=== PATIENT | male | born 1975 | race African-American/Black ===

== ENCOUNTER 2020-07-12 10:49 | Emergency (ER) | payer SELFPAY ==
[2020-07-12 11:12] LABS: #Basophils 0.1 thou/uL (0.0-0.2); #Eosinphils 0.1 thou/uL (0.0-0.7); #Lymphocytes 2.8 thou/uL (1.20-3.40); #Monocytes 0.6 thou/uL (0.11-0.59); #Neutrophils 3.4 thou/uL (1.40-6.50); %Basophils 0.8 % (0.0-1.0); %Lymphocytes 40.5 % (21.0-51.0); %Neutrophils 49.7 % (42.0-75.0); Hemoglobin 10.3 g/dL (14.0-18.0); Mean Corpuscular HGB CONC 32.7 g/dL (32.0-36.0); Mean Corpuscular Hemoglobin 26.1 pg (27.0-31.0); Mean Platelet Volume 8.5 fL (7.4-10.4); Platelet Count 326 thou/uL (130-400); RBC Distribution Width 12.9 % (11.5-14.5); Red Blood Cell (RBC) Count 3.94 mill/uL (4.70-6.10); White Blood Cell (WBC) Count 6.9 thou/uL (4.8-10.8)
--- NOTE | 2020-07-12 11:41 | RAD ---
Chest one view HISTORY: Syncope. COMPARISON: 11/11/2019. FINDINGS: Cardiac silhouette and pulmonary vasculature are unremarkable. Mediastinum is midline. No confluent airspace consolidation or evidence of pneumothorax. IMPRESSION : No abnormalities are demonstrated.
[2020-07-12 11:43] LABS: ALT (SGPT) 13 U/L (8-55); AST (SGOT) 14 U/L (5-34); Albumin 3.4 g/dL (3.5-5.0); Alkaline Phosphatase 98 U/L (40-110); Anion Gap 13 mmol/L (10-20); BUN (Urea Nitrogen) 23 mg/dL (8.9-20.6); Bilirubin, Total 0.2 mg/dL (0.2-1.2); Calc. Creatinine Clearance 0 mL/min (70-130); Calcium 8.4 mg/dL (7.8-10.44); Carbon Dioxide 26 mmol/L (22-29); Chloride 103 mmol/L (98-107); Globulin 2.7 g/dL (2.4-3.5); Glucose 160 mg/dL (70-105); Potassium 3.5 mmol/L (3.5-5.1); Protein, Total 6.1 g/dL (6.0-8.3); Sodium 138 mmol/L (136-145)
--- NOTE | 2020-07-12 11:52 | CT ---
CT HEAD WITHOUT IV CONTRAST COMPARISON: 03/03/2014 HISTORY: Patient stumbling. Syncopal episode. TECHNIQUE: Axial CT imaging at 5 mm intervals from vertex through skull base without contrast FINDINGS: There is no evidence of an acute infarction, hemorrhage, mass effect, or midline shift. The ventricul ar system is normal in size, shape, and position. Skull base has a normal CT appearance. Visualized paranasal sinuses are clear. Osseous structures appear intact. No interval change compared to prior exam. IMPRESSION: 1. No acute intracranial abnormality demonstrated.
[2020-07-12 12:24] LABS: Bacteria/HPF 4+ HPF (None Seen); Bilirubin Negative (Negative); Blood, Urine Negative (Negative); Clarity Clear (Clear); Glucose, Urine (Dipstick) Greater than 1000 mg/dL (Negative); Ketone, Urine Negative (Negative); Leukocyte 250 Leu/uL (Negative); Nitrite Negative (Negative); Protein, Urine (Dipstick) Negative (Neg-Trace); RBC/HPF 0-3 HPF (0-3); Specific Gravity, Urine 1.016 (1.002-1.036); Squamous Epithelial None Seen HPF (0-3); Urobilinogen Normal mg/dL (Less than 2); WBC/HPF 21-50 HPF (0-3)
[2020-07-12 12:34] LABS: Sperm/HPF Rare HPF (None Seen)
--- NOTE | 2020-07-29 20:36 | EKG ---
Test Reason : Blood Pressure : / mmHG Vent. Rate : 080 BPM Atrial Rate : 080 BPM P-R Int : 156 ms QRS Dur : 092 ms QT Int : 362 ms P-R-T Axes : 073 059 066 degrees QTc Int : 417 ms Normal sinus rhythm Nonspecific T wave abnormality Abnormal ECG Confirmed by LISET DOMINGUEZ, VIRI ([id number]), editorial assistant FREDY TINEO ([id number]) on 07/29/2020 8:36:39 PM Referred By: Confirmed By:VIRI HUTCHINS MD
== END 2020-07-12 13:25 | disposition home or self-care (01) ==
LOC: ERS 10:49
DX: R55 Syncope and collapse (principal); N39.0 Urinary tract infection, site not specified; E11.9 Type 2 diabetes mellitus without complications; I10 Essential (primary) hypertension; I48.91 Unspecified atrial fibrillation; F17.210 Nicotine dependence, cigarettes, uncomplicated; Z79.4 Long term (current) use of insulin; Z79.82 Long term (current) use of aspirin; Z79.899 Other long term (current) drug therapy
CPT/HCPCS: 36416; 70450; 71045; 80053; 81003; 81015; 84484; 85025; 93005

== ENCOUNTER 2020-09-16 15:00 | Inpatient (IN) | payer MEDICAID ==
[2020-09-16] MEDS ORDERED: Senokot S 8.6-50 MG TAB PO PRN (16:43)
[2020-09-16] MEDS ORDERED: Sodium Chloride 0.9% 1,000 ML IV PRN ×4 (16:43)
[2020-09-16] MEDS ORDERED: Calcium Carbonate 500 MG ChewTAB PO PRN (16:43)
[2020-09-16] MEDS ORDERED: Electrolyte Replacement Protocol IVPB SCH (16:43)
[2020-09-16] MEDS ORDERED: Ondansetron PF 4 MG/2 ML Vial IVP PRN (16:43)
[2020-09-16] MEDS ORDERED: Loperamide HCl 2 MG CAP PO PRN (16:43)
[2020-09-16] MEDS ORDERED: Ondansetron ODT 4 MG TAB PO PRN (16:43)
[2020-09-16] MEDS ORDERED: NS 0.9% w/ 20 MEQ KCL 1,000 ML IV PRN ×2 (16:43)
[2020-09-16] MEDS ORDERED: Dextrose 5 %-0.45 % NaCl 1,000 ML IV PRN (16:43)
[2020-09-16] MEDS ORDERED: Zolpidem Tartrate 5 MG TAB PO PRN (16:43)
[2020-09-16] MEDS ORDERED: HYDROcodone/Acetaminophen 5/325 mg Tablet PO PRN (16:43)
[2020-09-16] MEDS ORDERED: Acetaminophen 325 MG TAB PO PRN (16:43)
[2020-09-16] MEDS ORDERED: Bisacodyl 10 MG SUPP PR PRN (16:43)
[2020-09-16] MEDS ORDERED: Guaifenesin DM 100-10/5 ML UDCUP PO PRN (16:43)
[2020-09-16] MEDS ORDERED: D5 1/2 NS w/20 mEq KCL 1,000 ML IV PRN (16:43)
[2020-09-16] MEDS ORDERED: HUMULIN R 100 UNITS in Sodium Chloride 0.9% 100 ML IVPB SCH (16:45)
[2020-09-16] MEDS ORDERED: Atenolol 25 MG TAB PO SCH (17:00)
[2020-09-16 17:27] LABS: Anion Gap 17 mmol/L (10-20); BUN (Urea Nitrogen) 27 mg/dL (8.9-20.6); Calc. Creatinine Clearance 0 mL/min (70-130); Calcium 8.4 mg/dL (7.8-10.44); Carbon Dioxide 22 mmol/L (22-29); Chloride 111 mmol/L (98-107); Glucose 183 mg/dL (70-105); Potassium 3.9 mmol/L (3.5-5.1); Sodium 146 mmol/L (136-145)
[2020-09-16] MEDS: Atenolol 25 MG TAB PO SCH (17:43)
[2020-09-16] MEDS ORDERED: Dextrose 5% in Water 1,000 ML IV PRN (20:15)
[2020-09-16] MEDS ORDERED: Dextrose 50% Abboject 50 ML SYRINGE SLOW IVP PRN (20:15)
[2020-09-16] MEDS: Heparin 5,000 UNITS/ML VIAL SC SCH (21:28)
[2020-09-16 22:15] LABS: Anion Gap 12 mmol/L (10-20); BUN (Urea Nitrogen) 24 mg/dL (8.9-20.6); Calc. Creatinine Clearance 0 mL/min (70-130); Calcium 7.9 mg/dL (7.8-10.44); Carbon Dioxide 25 mmol/L (22-29); Chloride 109 mmol/L (98-107); Glucose 152 mg/dL (70-105); Potassium 4.1 mmol/L (3.5-5.1); Sodium 142 mmol/L (136-145)
[2020-09-17] MEDS ORDERED: Lantus 1000 UNITS/10 ML VIAL SC SCH ×2 (00:30→21:00)
[2020-09-17] MEDS: Sodium Chloride 0.9% 1,000 ML IV SCH ×3 (00:56→19:31)
[2020-09-17 02:00] LABS: Anion Gap 14 mmol/L (10-20); BUN (Urea Nitrogen) 21 mg/dL (8.9-20.6); Calc. Creatinine Clearance 0 mL/min (70-130); Calcium 7.5 mg/dL (7.8-10.44); Carbon Dioxide 20 mmol/L (22-29); Chloride 109 mmol/L (98-107); Glucose 154 mg/dL (70-105); Potassium 3.9 mmol/L (3.5-5.1); Sodium 139 mmol/L (136-145)
[2020-09-17] MEDS: HumaLOG 300 UNITS/3 ML VIAL SC PRN ×2 (02:31→10:59)
[2020-09-17 03:54] LABS: #Basophils 0.1 thou/uL (0.0-0.2); #Eosinphils 0.1 thou/uL (0.0-0.7); #Lymphocytes 3.7 thou/uL (1.20-3.40); #Monocytes 0.5 thou/uL (0.11-0.59); #Neutrophils 4.5 thou/uL (1.40-6.50); %Basophils 0.8 % (0.0-1.0); %Eosinophils 0.9 % (0.0-10.0); %Lymphocytes 42.1 % (21.0-51.0); %Monocytes 5.4 % (0.0-10.0); %Neutrophils 50.8 % (42.0-75.0); Hemoglobin 9.8 g/dL (14.0-18.0); Mean Corpuscular HGB CONC 33.2 g/dL (32.0-36.0); Mean Corpuscular Hemoglobin 26.2 pg (27.0-31.0); Mean Corpuscular Volume 78.9 fL (78.0-98.0); Mean Platelet Volume 9.4 fL (7.4-10.4); Platelet Count 276 thou/uL (130-400); RBC Distribution Width 12.4 % (11.5-14.5); Red Blood Cell (RBC) Count 3.75 mill/uL (4.70-6.10); White Blood Cell (WBC) Count 8.8 thou/uL (4.8-10.8)
[2020-09-17 03:58] LABS: Hemoglobin A1c Greater than 14.0 % (4.0-6.0)
[2020-09-17 04:18] LABS: ALT (SGPT) 34 U/L (8-55); AST (SGOT) 37 U/L (5-34); Albumin 3.1 g/dL (3.5-5.0); Alkaline Phosphatase 102 U/L (40-110); Anion Gap 12 mmol/L (10-20); BUN (Urea Nitrogen) 20 mg/dL (8.9-20.6); Bilirubin, Total 0.4 mg/dL (0.2-1.2); Calc. Creatinine Clearance 0 mL/min (70-130); Calcium 7.9 mg/dL (7.8-10.44); Carbon Dioxide 22 mmol/L (22-29); Chloride 109 mmol/L (98-107); Globulin 2.3 g/dL (2.4-3.5); Glucose 155 mg/dL (70-105); Phosphorus 2.5 mg/dL (2.3-4.7); Protein, Total 5.4 g/dL (6.0-8.3); Sodium 139 mmol/L (136-145)
[2020-09-17] MEDS ORDERED: Magnesium 2 GM/50 ML 2 GM in Premix Bag 1 BAG IVPB SCH (06:45)
[2020-09-17] MEDS: Heparin 5,000 UNITS/ML VIAL SC SCH ×2 (08:14→21:18)
[2020-09-17] MEDS: Famotidine 20 MG TAB PO SCH (08:15)
[2020-09-17] MEDS: Atenolol 25 MG TAB PO SCH (08:15)
[2020-09-17] MEDS: Famotidine/PF 20 mg/2ml Vial SLOW IVP SCH (08:24)
[2020-09-17] MEDS ORDERED: FLU VACC QS2020-21(6MOS UP)/PF 60 MCG/0.5 ML SYRINGE IM ONE (09:00)
[2020-09-17] MEDS ORDERED: Insulin Glargine 30 UNITS in Pre-Filled Syringe 1 EACH SC SCH (09:00)
[2020-09-17] MEDS: Lantus 1000 UNITS/10 ML VIAL SC SCH ×2 (10:13→21:21)
[2020-09-18 05:04] LABS: Anion Gap 8 mmol/L (10-20); BUN (Urea Nitrogen) 12 mg/dL (8.9-20.6); Calc. Creatinine Clearance 0 mL/min (70-130); Calcium 7.6 mg/dL (7.8-10.44); Carbon Dioxide 24 mmol/L (22-29); Chloride 110 mmol/L (98-107); Glucose 165 mg/dL (70-105); Potassium 3.8 mmol/L (3.5-5.1); Sodium 138 mmol/L (136-145)
[2020-09-18] MEDS: Sodium Chloride 0.9% 1,000 ML IV SCH (05:41)
[2020-09-18] MEDS: Famotidine/PF 20 mg/2ml Vial SLOW IVP SCH (07:36)
[2020-09-18] MEDS ORDERED: Magnesium 2 GM/50 ML 2 GM in Premix Bag 1 BAG IVPB SCH (07:45)
[2020-09-18] MEDS: Famotidine 20 MG TAB PO SCH (09:15)
[2020-09-18] MEDS: Heparin 5,000 UNITS/ML VIAL SC SCH (09:15)
[2020-09-18] MEDS: Atenolol 25 MG TAB PO SCH (09:23)
[2020-09-18] MEDS: Lantus 1000 UNITS/10 ML VIAL SC SCH (10:12)
[2020-09-18] MEDS ORDERED: Insulin Glargine 15 UNITS in Pre-Filled Syringe 1 EACH SC SCH (12:00)
[2020-09-18 12:07] VITALS: BP 122/80; TEMP 97.3
[2020-09-18] MEDS: HumaLOG 300 UNITS/3 ML VIAL SC PRN (12:08)
[2020-09-18] MEDS ORDERED: Lantus 1000 UNITS/10 ML VIAL SC SCH (12:15)
== END 2020-09-18 12:56 | disposition home or self-care (01) | DRG 638 ==
LOC: CCU 15:45 → 2NO 09-17 13:29
PROVIDERS: ADMIT Internal Medicine; ATTEND Internal Medicine
DX: E11.10 Type 2 diabetes mellitus with ketoacidosis without coma (principal); N17.9 Acute kidney failure, unspecified; I10 Essential (primary) hypertension; F32.9 Major depressive disorder, single episode, unspecified; E86.0 Dehydration; I48.0 Paroxysmal atrial fibrillation; F16.10 Hallucinogen abuse, uncomplicated; E11.42 Type 2 diabetes mellitus with diabetic polyneuropathy; F17.210 Nicotine dependence, cigarettes, uncomplicated; Z79.4 Long term (current) use of insulin
CPT/HCPCS: 36415; 36416; 80048; 82010; 83036; 83735; 84100; 84443; 85025; J1644; J1815; J3475; J3480

== ENCOUNTER 2021-03-31 18:12 | Inpatient (IN) | payer OTHER ==
[2021-03-31 19:04] LABS: #Eosinphils 0.1 thou/uL (0.0-0.7); #Lymphocytes 2.4 thou/uL (1.20-3.40); #Monocytes 0.5 thou/uL (0.11-0.59); #Neutrophils 3.8 thou/uL (1.40-6.50); %Basophils 0.7 % (0.0-1.0); %Lymphocytes 35.9 % (21.0-51.0); %Monocytes 6.6 % (0.0-10.0); %Neutrophils 55.9 % (42.0-75.0); Hemoglobin 10.4 g/dL (14.0-18.0); Mean Corpuscular HGB CONC 33.7 g/dL (32.0-36.0); Mean Corpuscular Hemoglobin 27.1 pg (27.0-31.0); Mean Corpuscular Volume 80.6 fL (78.0-98.0); Mean Platelet Volume 9.2 fL (7.4-10.4); Platelet Count 258 thou/uL (130-400); RBC Distribution Width 12.4 % (11.5-14.5); Red Blood Cell (RBC) Count 3.82 mill/uL (4.70-6.10); White Blood Cell (WBC) Count 6.8 thou/uL (4.8-10.8)
[2021-03-31 19:13] LABS: Bacteria/HPF None Seen HPF (None Seen); Bilirubin Negative (Negative); Blood, Urine Negative (Negative); Clarity Clear (Clear); Glucose, Urine (Dipstick) Greater than 1000 mg/dL (Negative); Ketone, Urine Negative (Negative); Leukocyte Negative Leu/uL (Negative); Nitrite Negative (Negative); Protein, Urine (Dipstick) 30 mg/dL (Neg-Trace); RBC/HPF 0-3 HPF (0-3); Specific Gravity, Urine 1.022 (1.002-1.036); Squamous Epithelial 0-3 HPF (0-3); Urobilinogen Normal mg/dL (Less than 2); WBC/HPF 0-3 HPF (0-3); pH, Urine 5.5 (5.0-9.0)
[2021-03-31 19:21] LABS: Amphetamine Not Detected (NotDetected); Barbiturates Screen Not Detected (NotDetected); Benzodiazepine Screen Not Detected (NotDetected); Cocaine Metabolite Screen Not Detected (NotDetected); Methadone Not Detected (NotDetected); Methamphetamine Not Detected (NotDetected); Opiate Screen Not Detected (NotDetected); Oxycodone Screen Not Detected (NotDetected); Phencyclidine (PCP) Detected (NotDetected); THC/Cannabinoid Screen Not Detected (NotDetected); Tricyclic Screen Not Detected (NotDetected)
[2021-03-31 19:26] LABS: ALT (SGPT) 14 U/L (8-55); AST (SGOT) 13 U/L (5-34); Acetaminophen Less than 6.0 mcg/mL (10.0-30.0); Albumin 3.8 g/dL (3.5-5.0); Alcohol Less than 10 mg/dL (Less than 10); Alkaline Phosphatase 97 U/L (40-110); Anion Gap 14 mmol/L (10-20); BUN (Urea Nitrogen) 23 mg/dL (8.9-20.6); Bilirubin, Total 0.2 mg/dL (0.2-1.2); CK (CPK) 99 U/L (30-200); Calc. Creatinine Clearance 0 mL/min (70-130); Calcium 9.5 mg/dL (7.8-10.44); Carbon Dioxide 27 mmol/L (22-29); Chloride 103 mmol/L (98-107); Globulin 2.6 g/dL (2.4-3.5); Glucose 132 mg/dL (70-105); Potassium 3.8 mmol/L (3.5-5.1); Protein, Total 6.4 g/dL (6.0-8.3); Salicylate Less than 8.0 mg/dL (15.0-30.0); Sodium 140 mmol/L (136-145)
[2021-03-31] MEDS ORDERED: Cefepime 2 GM VIAL ONE (21:05)
[2021-04-01] MEDS ORDERED: Acetaminophen 650 MG Suppository PR PRN (00:28)
[2021-04-01] MEDS ORDERED: Ondansetron PF 4 MG/2 ML Vial IVP PRN (00:28)
[2021-04-01] MEDS ORDERED: Ondansetron ODT 4 MG TAB PO PRN (00:28)
[2021-04-01] MEDS ORDERED: Acetaminophen 325 MG TAB PO PRN (00:28)
[2021-04-01] MEDS ORDERED: Dextrose 50% Abboject 50 ML SYRINGE SLOW IVP PRN (00:30)
[2021-04-01] MEDS ORDERED: Dextrose 5% in Water 1,000 ML IV PRN (00:30)
[2021-04-01] MEDS ORDERED: HumaLOG 300 UNITS/3 ML VIAL SC PRN (00:30)
[2021-04-01 06:05] LABS: #Eosinphils 0.1 thou/uL (0.0-0.7); #Lymphocytes 2.1 thou/uL (1.20-3.40); #Monocytes 0.5 thou/uL (0.11-0.59); #Neutrophils 2.9 thou/uL (1.40-6.50); %Basophils 0.4 % (0.0-1.0); %Lymphocytes 37.8 % (21.0-51.0); %Monocytes 8.6 % (0.0-10.0); %Neutrophils 52.2 % (42.0-75.0); Hemoglobin 9.7 g/dL (14.0-18.0); Mean Corpuscular HGB CONC 32.4 g/dL (32.0-36.0); Mean Corpuscular Hemoglobin 26.2 pg (27.0-31.0); Mean Corpuscular Volume 80.7 fL (78.0-98.0); Mean Platelet Volume 9.4 fL (7.4-10.4); Platelet Count 272 thou/uL (130-400); RBC Distribution Width 12.2 % (11.5-14.5); Red Blood Cell (RBC) Count 3.69 mill/uL (4.70-6.10); White Blood Cell (WBC) Count 5.6 thou/uL (4.8-10.8)
[2021-04-01] MEDS: HumaLOG 300 UNITS/3 ML VIAL SC PRN (06:19)
[2021-04-01 06:22] LABS: Anion Gap 10 mmol/L (10-20); BUN (Urea Nitrogen) 18 mg/dL (8.9-20.6); Calc. Creatinine Clearance 60 mL/min (70-130); Calcium 8.5 mg/dL (7.8-10.44); Carbon Dioxide 27 mmol/L (22-29); Chloride 102 mmol/L (98-107); Glucose 471 mg/dL (70-105); Potassium 4.2 mmol/L (3.5-5.1); Sodium 135 mmol/L (136-145)
[2021-04-01] MEDS ORDERED: hydrALAZINE 20 MG/ML VIAL SLOW IVP PRN (06:51)
[2021-04-01 07:15] LABS: Hemoglobin A1c 13.1 % (4.0-6.0)
[2021-04-01] MEDS ORDERED: Insulin Regular 300 UNITS/3 ML VIAL ONE (08:43)
[2021-04-01] MEDS ORDERED: Non-Formulary Item 1 EACH (Insulin Nph Hum/Reg Insulin Hm [Novolin 70-30 Flexpen] 100 UNI SQ SCH (09:00)
[2021-04-01] MEDS ORDERED: Non-Formulary Item 1 EACH (Pregabalin [Lyrica] 150 MG Capsule) PO SCH (09:00)
[2021-04-01] MEDS: Pregabalin 75 MG CAP PO SCH ×2 (09:00→20:20)
[2021-04-01] MEDS ORDERED: FLU VACC QS2021-22(6MOS UP)/PF 60 MCG/0.5 ML SYRINGE IM ONE (09:00)
[2021-04-01] MEDS: HumuLIN 70/30 (300 UNITS/3 ML VIAL) SC SCH ×2 (09:10→20:17)
[2021-04-01] MEDS ORDERED: Amlodipine 5 MG TAB PO SCH (21:00)
[2021-04-01] MEDS: Docusate 100 MG CAP PO SCH (21:07)
[2021-04-02 05:03] VITALS: BMI 21.2
[2021-04-02] MEDS: Pregabalin 75 MG CAP PO SCH (08:55)
[2021-04-02] MEDS: HumuLIN 70/30 (300 UNITS/3 ML VIAL) SC SCH (08:57)
[2021-04-02] MEDS: Docusate 100 MG CAP PO SCH (08:58)
[2021-04-02] MEDS ORDERED: Insulin Regular 300 UNITS/3 ML VIAL ONE (11:29)
[2021-04-02] MEDS: HumaLOG 300 UNITS/3 ML VIAL SC PRN (11:31)
[2021-04-02 12:41] VITALS: BP 175/85; TEMP 97.9
== END 2021-04-02 15:14 | disposition home or self-care (01) | DRG 312 ==
LOC: ERS 18:12 → 2SW 21:51 → OBSVTOIN 04-02 14:28
PROVIDERS: ADMIT Student in an Organized Health Care Education/Training Program; ATTEND Family Medicine
DX: I95.2 Hypotension due to drugs (principal); N17.9 Acute kidney failure, unspecified; E87.2 Acidosis; E86.9 Volume depletion, unspecified; Z20.822 Contact with and (suspected) exposure to COVID-19; I10 Essential (primary) hypertension; E11.65 Type 2 diabetes mellitus with hyperglycemia; E86.0 Dehydration; E11.40 Type 2 diabetes mellitus with diabetic neuropathy, unspecified; D64.9 Anemia, unspecified; F12.10 Cannabis abuse, uncomplicated; T44.7X6A Underdosing of beta-adrenoreceptor antagonists, initial encounter; T46.5X6A Underdosing of other antihypertensive drugs, initial encounter; E11.649 Type 2 diabetes mellitus with hypoglycemia without coma; Z91.14 Patient's other noncompliance with medication regimen; Z91.128 Patient's intentional underdosing of medication regimen for other reason; Z79.899 Other long term (current) drug therapy; Z79.4 Long term (current) use of insulin
CPT/HCPCS: 36415; 36416; 71045; 80048; 80053; 80306; 80307; 81003; 81015; 82550; 83036; 83605; 84484; 85025; 86850; 86900; 86901; 87040; 87086; 90471; 90686; 90732; 93005; 96365; 96366; G0008; G0009; G0378; J0692; J1815

== ENCOUNTER 2021-08-22 15:11 | Emergency (ER) | payer OTHER | END 2021-08-22 16:26 | disposition home or self-care (01) | LOC: ERS 15:11 | DX: R55 Syncope and collapse (principal); Z79.899 Other long term (current) drug therapy; Z79.4 Long term (current) use of insulin; E11.9 Type 2 diabetes mellitus without complications; I10 Essential (primary) hypertension; I48.91 Unspecified atrial fibrillation; F17.210 Nicotine dependence, cigarettes, uncomplicated | CPT/HCPCS: 99284 ==

== ENCOUNTER 2021-10-23 11:34 | Observation (INO) | payer OTHER ==
[2021-10-23 12:07] LABS: Actual Bicarbonate (HCO3v) 28 mEq/L (22-28); Analyzer IN Cardio ER; Calcium, Ionized (venous) 1.15 mmol/L (1.16-1.32); Chloride (VBG) 104 mmol/L (98-106); Potassium (VBG) 3.46 mmol/L (3.70-5.30); Sodium 141.4 mmol/L (133-146); pH (venous) 7.34 (7.32-7.43)
[2021-10-23 12:36] LABS: #Lymphocytes 1.7 thou/uL (1.20-3.40); #Monocytes 0.6 thou/uL (0.11-0.59); #Neutrophils 4.8 thou/uL (1.40-6.50); %Basophils 0.1 % (0.0-1.0); %Eosinophils 0.6 % (0.0-10.0); %Lymphocytes 23.8 % (21.0-51.0); %Neutrophils 67.5 % (42.0-75.0); Mean Corpuscular HGB CONC 31.9 g/dL (32.0-36.0); Mean Corpuscular Hemoglobin 25.7 pg (27.0-31.0); Mean Corpuscular Volume 80.8 fL (78.0-98.0); Mean Platelet Volume 8.5 fL (7.4-10.4); Platelet Count 325 thou/uL (130-400); RBC Distribution Width 13.1 % (11.5-14.5); Red Blood Cell (RBC) Count 4.27 mill/uL (4.70-6.10); White Blood Cell (WBC) Count 7.1 thou/uL (4.8-10.8)
[2021-10-23 12:51] LABS: ALT (SGPT) 9 U/L (8-55); AST (SGOT) 10 U/L (5-34); Albumin 3.8 g/dL (3.5-5.0); Alkaline Phosphatase 132 U/L (40-110); Anion Gap 13 mmol/L (10-20); BUN (Urea Nitrogen) 17 mg/dL (8.9-20.6); Bilirubin, Total 0.6 mg/dL (0.2-1.2); Calc. Creatinine Clearance 0 mL/min (70-130); Calcium 9.1 mg/dL (7.8-10.44); Carbon Dioxide 26 mmol/L (22-29); Chloride 105 mmol/L (98-107); Globulin 3.1 g/dL (2.4-3.5); Glucose 246 mg/dL (70-105); Potassium 3.4 mmol/L (3.5-5.1); Protein, Total 6.9 g/dL (6.0-8.3); Sodium 141 mmol/L (136-145)
[2021-10-23] MEDS ORDERED: Aspirin Chewable 81 MG TAB ONE (12:52)
[2021-10-23 16:02] LABS: Amphetamine Not Detected (NotDetected); Barbiturates Screen Not Detected (NotDetected); Benzodiazepine Screen Not Detected (NotDetected); Cocaine Metabolite Screen Not Detected (NotDetected); Methadone Not Detected (NotDetected); Methamphetamine Not Detected (NotDetected); Opiate Screen Not Detected (NotDetected); Oxycodone Screen Not Detected (NotDetected); Phencyclidine (PCP) Detected (NotDetected); THC/Cannabinoid Screen Not Detected (NotDetected); Tricyclic Screen Not Detected (NotDetected)
[2021-10-23] MEDS ORDERED: Ondansetron PF 4 MG/2 ML Vial IVP PRN (16:06)
[2021-10-23] MEDS ORDERED: Dextrose 5% in Water 1,000 ML IV PRN (16:16)
[2021-10-23] MEDS ORDERED: Dextrose 50% Abboject 50 ML SYRINGE SLOW IVP PRN (16:16)
[2021-10-23 16:19] LABS: Troponin I Less than 0.010 ng/mL (< 0.028)
[2021-10-23] MEDS ORDERED: hydrALAZINE 20 MG/ML VIAL SLOW IVP PRN (16:38)
[2021-10-23] MEDS ORDERED: Amlodipine 10 MG TAB PO SCH (16:45)
[2021-10-23] MEDS: Sodium Chloride 0.9% 1,000 ML IV SCH ×2 (16:45→22:18)
[2021-10-23 16:51] VITALS: BMI 21.2
[2021-10-23 18:11] LABS: Troponin I Less than 0.010 ng/mL (< 0.028)
[2021-10-23] MEDS: Acetaminophen 325 MG TAB PO PRN ×2 (18:19→22:19)
[2021-10-23] MEDS: Metoprolol Tartrate 25 MG TAB PO SCH (22:13)
[2021-10-23] MEDS: Atorvastatin Calcium 40 MG TAB PO SCH (22:14)
[2021-10-23] MEDS: HumaLOG 300 UNITS/3 ML VIAL SC PRN (22:54)
[2021-10-23 23:10] LABS: SARS-CoV-2 PCR by NAA Not Detected (NotDetected)
[2021-10-24 04:48] LABS: #Basophils 0.1 thou/uL (0.0-0.2); #Eosinphils 0.1 thou/uL (0.0-0.7); #Lymphocytes 1.8 thou/uL (1.20-3.40); #Monocytes 0.4 thou/uL (0.11-0.59); #Neutrophils 3.7 thou/uL (1.40-6.50); %Basophils 0.9 % (0.0-1.0); %Eosinophils 1.1 % (0.0-10.0); %Lymphocytes 29.9 % (21.0-51.0); %Neutrophils 61.2 % (42.0-75.0); Hemoglobin 8.7 g/dL (14.0-18.0); Mean Corpuscular HGB CONC 32.2 g/dL (32.0-36.0); Mean Corpuscular Hemoglobin 25.7 pg (27.0-31.0); Mean Corpuscular Volume 79.7 fL (78.0-98.0); Mean Platelet Volume 8.3 fL (7.4-10.4); Platelet Count 256 thou/uL (130-400); RBC Distribution Width 12.8 % (11.5-14.5); Red Blood Cell (RBC) Count 3.38 mill/uL (4.70-6.10); White Blood Cell (WBC) Count 6.1 thou/uL (4.8-10.8)
[2021-10-24 05:04] LABS: Anion Gap 12 mmol/L (10-20); BUN (Urea Nitrogen) 18 mg/dL (8.9-20.6); Calc. Creatinine Clearance 57 mL/min (70-130); Carbon Dioxide 25 mmol/L (22-29); Chloride 105 mmol/L (98-107); Glucose 342 mg/dL (70-105); Potassium 3.2 mmol/L (3.5-5.1); Sodium 139 mmol/L (136-145)
[2021-10-24] MEDS: Sodium Chloride 0.9% 1,000 ML IV SCH ×2 (05:33→13:35)
[2021-10-24] MEDS: HumaLOG 300 UNITS/3 ML VIAL SC PRN ×3 (05:56→17:55)
[2021-10-24] MEDS ORDERED: ADENOSINE 60 MG/20 ML VIAL ONE (08:44)
[2021-10-24] MEDS: Enoxaparin Sodium 30 MG/0.3 ML SYRINGE SC SCH ×2 (11:38→11:42)
[2021-10-24] MEDS: Metoprolol Tartrate 25 MG TAB PO SCH ×2 (11:38→21:02)
[2021-10-24] MEDS: Amlodipine 10 MG TAB PO SCH (11:38)
[2021-10-24] MEDS: Pregabalin 75 MG CAP PO SCH ×2 (11:39→21:02)
[2021-10-24] MEDS: Aspirin 81 mg Enteric Coated Tablet PO SCH (11:39)
[2021-10-24] MEDS: HYDROcodone/Acetaminophen 10/325 mg Tablet PO SCH ×2 (11:40→21:02)
[2021-10-24] MEDS ORDERED: Potassium Chloride 20 MEQ TAB PO SCH (13:45)
[2021-10-24 15:10] LABS: HIV (1/2) Antibody/Antigen Non-Reactive (NonReactive); HIV 1/2 INDEX 0.27 S/CO (<1.00)
[2021-10-24] MEDS: HumuLIN 70/30 (300 UNITS/3 ML VIAL) SC SCH (17:54)
[2021-10-24 18:56] LABS: Syphilis Antibody Index 15.25 S/CO (<1.00 Non-Reactive)
[2021-10-24] MEDS: Atorvastatin Calcium 40 MG TAB PO SCH (21:01)
[2021-10-25 04:45] LABS: Anion Gap 13 mmol/L (10-20); BUN (Urea Nitrogen) 23 mg/dL (8.9-20.6); Calc. Creatinine Clearance 48 mL/min (70-130); Calcium 8.5 mg/dL (7.8-10.44); Carbon Dioxide 22 mmol/L (22-29); Chloride 107 mmol/L (98-107); Glucose 366 mg/dL (70-105); Potassium 4.5 mmol/L (3.5-5.1); Sodium 137 mmol/L (136-145)
[2021-10-25] MEDS: HumuLIN 70/30 (300 UNITS/3 ML VIAL) SC SCH (06:43)
[2021-10-25 08:27] VITALS: BP 97/56; TEMP 97.3
[2021-10-25] MEDS ORDERED: Pioglitazone HCl 45 MG TAB PO SCH (09:00)
[2021-10-25] MEDS ORDERED: Enoxaparin Sodium 40 MG/0.4 ML SYRINGE SC SCH (09:00)
[2021-10-25] MEDS: Pregabalin 75 MG CAP PO SCH (09:33)
[2021-10-25] MEDS: HYDROcodone/Acetaminophen 10/325 mg Tablet PO SCH (09:34)
[2021-10-25] MEDS: Amlodipine 10 MG TAB PO SCH (09:35)
[2021-10-25] MEDS: Metoprolol Tartrate 25 MG TAB PO SCH (09:36)
[2021-10-25] MEDS: Aspirin 81 mg Enteric Coated Tablet PO SCH (09:36)
[2021-10-25 10:05] LABS: Syphilis Antibody INDETERMINATE (Nonreactive)
== END 2021-10-25 10:45 | disposition home or self-care (01) ==
LOC: ERS 11:34 → 2NO 14:48
PROVIDERS: ADMIT Internal Medicine; ATTEND Internal Medicine
DX: R07.9 Chest pain, unspecified (principal); N17.9 Acute kidney failure, unspecified; E11.9 Type 2 diabetes mellitus without complications; I10 Essential (primary) hypertension; E78.5 Hyperlipidemia, unspecified; F16.10 Hallucinogen abuse, uncomplicated; F17.210 Nicotine dependence, cigarettes, uncomplicated; E78.00 Pure hypercholesterolemia, unspecified; F12.10 Cannabis abuse, uncomplicated; R53.1 Weakness; M47.815 Spondylosis without myelopathy or radiculopathy, thoracolumbar region; M47.816 Spondylosis without myelopathy or radiculopathy, lumbar region; M51.36 Other intervertebral disc degeneration, lumbar region; M51.37 Other intervertebral disc degeneration, lumbosacral region; I48.91 Unspecified atrial fibrillation; Z79.4 Long term (current) use of insulin; Z79.84 Long term (current) use of oral hypoglycemic drugs; Z79.899 Other long term (current) drug therapy; Z20.822 Contact with and (suspected) exposure to COVID-19
CPT/HCPCS: 36415; 36416; 71045; 72146; 72148; 78452; 80048; 80053; 80306; 82010; 82805; 83690; 84484; 85025; 86593; 86780; 87389; 93005; 93017; 96372; 96374; A9500; G0378; J0153; J0360; J1650; J1815; J7050; U0003; U0005

== ENCOUNTER 2021-12-17 15:05 | Outpatient (CLI) | payer OTHER | END 2021-12-17 15:06 | disposition home or self-care (01) | LOC: BICULT 15:05 | PROVIDERS: ATTEND Internal Medicine Nephrology | DX: N18.30 Chronic kidney disease, stage 3 unspecified (principal) | CPT/HCPCS: 76770 ==